=== PATIENT | male | born 1945 | race Caucasian/White ===

== ENCOUNTER 2025-06-14 11:45 | Inpatient (IN) | payer OTHER ==
[~2025-06-14] VITALS: Ht 172.7 cm; Wt 77.1 kg
[2025-06-14 15:00] VITALS: BP 100/60; O2SAT 97
[2025-06-14] MEDS ORDERED: PIPERACILLIN/TAZOBACTAM SODIUM 3.375 GM in 0.9 % SODIUM CHLORIDE 100 ML IV SCH (15:37)
[2025-06-14] MEDS ORDERED: 0.9 % SODIUM CHLORIDE 1,000 ML IV SCH (15:45)
[2025-06-14] MEDS ORDERED: ENALAPRILAT DIHYDRATE 1.25 MG/ML VIAL IV PRN (15:45)
[2025-06-14] MEDS ORDERED: ONDANSETRON HCL 2 MG/ML VIAL IV SCH (18:00)
[2025-06-14 18:09] LABS: BASO % 0.9 % (0.1-1.2); EOS # 0.32 (0.04-0.54); EOS % 5.8 % (0.7-7.0); LYMPH # 0.91 (1.18-3.74); LYMPH % 16.4 % (19.3-53.1); MEAN PLATELET VOLUME 12.10 fl (9.4-12.4); MONO # 0.53 (0.24-0.82); MONO % 9.5 % (4.7-12.5); NEUT # 3.74 (1.56-6.13); NEUT % 67.2 % (34.0-71.1); RED CELL DISTRIBUTION WIDTH 24.3 % (11.6-14.4)
[2025-06-14 18:26] LABS: INR 1.18
[2025-06-14 18:37] LABS: ALT/SGPT 29.0 U/L (12-78); AST/SGOT 51.0 U/L (15-37); BILIRUBIN TOTAL 1.47 mg/dL (0.3-1.2); BUN CREA RATIO 15.0 (7.0-25.0); CREATININE SERUM 1.0 mg/dL (0.70-1.30); GFR 71.9; GLOBULINA 4.3 G/DL (2.4-3.5); GLUCOSE FASTING 102.0 mg/dL (65-100); OSMOLALITY SERUM 284.0 MOSM/KG (275-295)
[2025-06-14] MEDS ORDERED: ORPHENADRINE CITRATE 30 MG/ML AMPUL IV SCH (21:00)
[2025-06-14] MEDS ORDERED: FAMOTIDINE/PF 20 MG/2 ML VIAL IV SCH (21:00)
[2025-06-15 01:29] VITALS: BP 148/79; O2SAT 95
[2025-06-15 08:41] VITALS: BP 119/68; O2SAT 93
[2025-06-15] MEDS ORDERED: IOVERSOL 320 MG/ML - 50 ML VIAL IV ONE (13:25)
[2025-06-15] MEDS ORDERED: SUGAMMADEX SODIUM 200 MG/2 ML VIAL IV ONE (14:47)
[2025-06-15] MEDS ORDERED: ONDANSETRON HCL 2 MG/ML VIAL ONE (18:02)
[2025-06-15] MEDS ORDERED: PIPERACILLIN/TAZOBACTAM SODIUM 3.375 GM VIAL IV ONE (18:03)
[2025-06-15] MEDS ORDERED: SODIUM CL 0.9% 100 ML IV.SOLN IV ONE (23:28)
[2025-06-16 00:30] VITALS: BP 141/76; O2SAT 98
[2025-06-16 08:00] VITALS: BP 93/51; O2SAT 98
[2025-06-17] VITALS: BP 129/57; O2SAT 95
[2025-06-17 08:00] VITALS: BP 150/67; O2SAT 95
[2025-06-17 16:00] VITALS: BP 147/74; O2SAT 97
[2025-06-18 00:30] VITALS: BP 145/79; O2SAT 95
[2025-06-18 08:00] VITALS: BP 130/62; O2SAT 96
[2025-06-18 16:00] VITALS: BP 196/82; O2SAT 100
[2025-06-18] MEDS ORDERED: LOSARTAN POTASSIUM 50 MG TABLET PO ONE (16:45)
== END 2025-06-18 18:07 | disposition home or self-care (01) | DRG 446 ==
LOC: SURH 11:45 → SURG 14:22 → SURH 14:22 → SURG 06-18 18:07
PROVIDERS: Internal Medicine; ADMIT Internal Medicine; ATTEND Internal Medicine
PROC: 0FC98ZZ Extirpation of Matter from Common Bile Duct, Via Natural or Artificial Opening Endoscopic (ICD-10-PCS; 2025-06-15)
PROC: 0F798ZZ Dilation of Common Bile Duct, Via Natural or Artificial Opening Endoscopic (ICD-10-PCS; principal; 2025-06-15 13:00)
DX: K80.51 Calculus of bile duct without cholangitis or cholecystitis with obstruction (principal); K70.30 Alcoholic cirrhosis of liver without ascites; R74.8 Abnormal levels of other serum enzymes